=== PATIENT | female | born 1975 | race Two or more races ===

== ENCOUNTER 2020-07-27 06:06 | Outpatient (REF) | payer OTHER, SELFPAY ==
[2020-07-27 06:54] LABS: Basophils Percent Auto 0.3 % (0-2); Eosinophils Absolute Auto 0.2 X10*3/uL (0.0-0.4); Eosinophils Percent Auto 3.2 % (0-4); Hematocrit 39.2 % (37-47); Hemoglobin 12.9 g/dl (12.0-16.0); Imm Gran Abs Auto 0.02 X10*3/uL (0.00-0.03); Imm Gran Pct Auto 0.3 % (0.0-0.4); Lymphocytes Absolute Auto 2.1 X10*3/uL (1.2-4.9); Lymphocytes Percent Auto 32.6 % (20-40); Mean Corpuscular HGB Conc 32.9 g/dl (31.0-35.0); Mean Corpuscular Hemoglobin 26.9 pg (27.0-33.0); Mean Corpuscular Volume 81.7 fL (80-98); Mean Platelet Volume 10.7 fL (9.4-12.3); Monocytes Absolute Auto 0.5 X10*3/uL (0.1-1.2); Monocytes Percent Auto 7.3 % (2-11); Neutrophils Absolute Auto 3.6 X10*3/uL (2.0-8.3); Neutrophils Percent Auto 56.3 % (45-73); Platelet Count 272 X10*3/uL (160-400); Red Cell Distribution Width 13.5 % (11.0-16.0); White Blood Count 6.3 X10*3/uL (4.8-10.8)
[2020-07-27 06:55] LABS: MANUAL DIFF FLAG NO
[2020-07-27 07:27] LABS: Alanine Aminotransferase 18 U/L (0-31); Albumin Level 4.2 g/dL (3.5-5.0); Alkaline Phosphatase 61 U/L (39-117); Anion Gap 11 (12-20); Aspartate Amino Transferase 15 U/L (5-31); Bilirubin Total 0.3 mg/dL (0.0-1.0); Blood Urea Nitrogen 17 mg/dL (9-16); Calcium 8.7 mg/dL (8.4-10.2); Carbon Dioxide 27 mmol/L (22-29); Chloride 103 mmol/L (96-108); Cholesterol 194 mg/dL; Estimated Glomerular Filt Rate > 60; Glucose Fasting 136 mg/dL (60-99); HDL Cholesterol 98 mg/dL; LDL Cholesterol Calculated 89 mg/dl; Potassium 3.9 mmol/l (3.3-5.1); Sodium 137 mmol/L (135-145); Total Protein 6.8 g/dL (6.5-8.0); Triglycerides 37 mg/dL
[2020-07-27 07:47] LABS: TSH reflex Free T4 3.11 mIU/mL (0.32-4.0)
[2020-07-27 08:00] LABS: Estimated Average Glucose 143 mg/dL; Hemoglobin A1c % 6.6 %
[2020-07-27 10:03] LABS: Microalbum/Creatinine Ratio Ur 9.4 ug/mg cr
== END 2020-07-27 06:07 | disposition home or self-care (01) ==
LOC: HO.LAB 06:06
PROVIDERS: Absent Provider Internal Medicine Hypertension Specialist; PCP Physician Assistant; Visit Provider Physician Assistant
DX: E11.21 Type 2 diabetes mellitus with diabetic nephropathy (principal); R80.9 Proteinuria, unspecified
CPT/HCPCS: 36415; 80053; 80061; 82043; 83036; 84443; 85025

== ENCOUNTER 2020-08-13 09:30 | Outpatient (REF) | payer OTHER, SELFPAY ==
[2020-08-13 10:09] LABS: COVID-19 Test Negative (Negative)
== END 2020-08-13 09:31 | disposition home or self-care (01) ==
LOC: HO.EMPCOV 09:30
PROVIDERS: Visit Provider Internal Medicine
DX: Z20.828 Contact with and (suspected) exposure to other viral communicable diseases (principal)
CPT/HCPCS: 87635; C9803

== ENCOUNTER 2020-12-12 14:39 | Outpatient (REF) | payer OTHER, SELFPAY | END 2020-12-12 14:40 | disposition home or self-care (01) | LOC: HO.LNP 14:39 | PROVIDERS: Visit Provider Nurse Practitioner Family | DX: Z20.822 Contact with and (suspected) exposure to COVID-19 (principal); J01.90 Acute sinusitis, unspecified | CPT/HCPCS: U0003; U0005 ==

== ENCOUNTER 2022-01-09 09:10 | Outpatient (REF) | payer OTHER, SELFPAY ==
[2022-01-09 09:38] LABS: MANUAL DIFF FLAG NO
[2022-01-09 10:17] LABS: Basophils Percent Auto 0.6 % (0-2); Eosinophils Absolute Auto 0.2 X10*3/uL (0.0-0.4); Eosinophils Percent Auto 4.1 % (0-4); Hematocrit 40.2 % (37.0-47.0); Hemoglobin 12.7 g/dl (12.0-16.0); Imm Gran Abs Auto 0.04 X10*3/uL (0.00-0.03); Imm Gran Pct Auto 0.8 % (0.0-0.4); Lymphocytes Absolute Auto 1.8 X10*3/uL (1.2-4.9); Lymphocytes Percent Auto 36.2 % (20-40); Mean Corpuscular HGB Conc 31.6 g/dl (31.0-35.0); Mean Corpuscular Hemoglobin 25.7 pg (27.0-33.0); Mean Corpuscular Volume 81.2 fL (80.0-98.0); Mean Platelet Volume 10.7 fL (9.4-12.3); Monocytes Absolute Auto 0.5 X10*3/uL (0.1-1.2); Monocytes Percent Auto 9.4 % (2-11); Neutrophils Absolute Auto 2.5 x10*3/uL (2.0-8.3); Neutrophils Percent Auto 48.9 % (45-73); Platelet Count 249 X10*3/uL (160-400); Red Blood Count 4.95 X10*6/uL (4.20-5.50); Red Cell Distribution Width 14.5 % (11.0-16.0); White Blood Count 5.1 X10*3/uL (4.8-10.8)
[2022-01-09 10:54] LABS: Alanine Aminotransferase 22 U/L (0-31); Albumin Level 4.3 g/dL (3.5-5.0); Alkaline Phosphatase 62 U/L (39-117); Anion Gap 11 (12-20); Aspartate Amino Transferase 14 U/L (5-31); Bilirubin Total 0.4 mg/dL (0.0-1.0); Blood Urea Nitrogen 15 mg/dL (9-16); Calcium 9.6 mg/dL (8.4-10.2); Carbon Dioxide 28 mmol/L (22-29); Chloride 104 mmol/L (96-108); Cholesterol 192 mg/dL; Estimated Glomerular Filt Rate > 60; Glucose Fasting 177 mg/dL (60-99); HDL Cholesterol 97 mg/dL; LDL Cholesterol Calculated 89 mg/dl; Potassium 4.1 mmol/L (3.3-5.1); Sodium 139 mmol/L (135-145); Triglycerides 34 mg/dL
[2022-01-09 11:12] LABS: TSH reflex Free T4 2.78 uIU/mL (0.32-4.0)
[2022-01-09 11:16] LABS: Creatinine Urine 123.28 mg/dL; Microalbum/Creatinine Ratio Ur 10.5 ug/mg cr
[2022-01-12 15:42] LABS: Aspergillus Antigen Not Detected (Not Detected); Index Value 0.08 (<0.50)
== END 2022-01-09 09:11 | disposition home or self-care (01) ==
LOC: HO.LAB 09:10
PROVIDERS: PCP Physician Assistant; Visit Provider Physician Assistant
DX: E11.9 Type 2 diabetes mellitus without complications (principal); Z77.120 Contact with and (suspected) exposure to mold (toxic)
CPT/HCPCS: 36415; 80053; 80061; 82043; 84443; 85025; 87103; 87305

== ENCOUNTER 2022-11-19 12:59 | Outpatient (REF) | payer OTHER, SELFPAY ==
[2022-11-19 14:02] LABS: Alanine Aminotransferase 21 U/L (0-31); Albumin Level 4.1 g/dL (3.5-5.0); Alkaline Phosphatase 59 U/L (39-117); Anion Gap 13 (12-20); Aspartate Amino Transferase 18 U/L (5-31); Bilirubin Total 0.4 mg/dL (0.0-1.0); Blood Urea Nitrogen 9 mg/dL (9-16); Carbon Dioxide 29 mmol/L (22-29); Chloride 104 mmol/L (96-108); Cholesterol 157 mg/dL; Estimated Glomerular Filt Rate > 60; Glucose Random 125 mg/dL (60-115); HDL Cholesterol 64 mg/dL; LDL Cholesterol Calculated 84 mg/dl; Potassium 3.7 mmol/L (3.3-5.1); Sodium 142 mmol/L (135-145); Total Protein 6.4 g/dL (6.5-8.0); Triglycerides 49 mg/dL
[2022-11-19 14:19] LABS: TSH reflex Free T4 1.57 uIU/mL (0.32-4.0); Vitamin D 25-OH Total 11.2 ng/mL (>30)
[2022-11-19 14:33] LABS: Estimated Average Glucose 240 mg/dL
[2022-11-19 16:31] LABS: Creatinine Urine 318.54 mg/dL; Microalbum/Creatinine Ratio Ur 24.4 ug/mg cr
== END 2022-11-19 13:00 | disposition home or self-care (01) ==
LOC: HO.LAB 12:59
PROVIDERS: PCP Physician Assistant; Visit Provider Nurse Practitioner Family
DX: Z01.84 Encounter for antibody response examination (principal); Z13.21 Encounter for screening for nutritional disorder; Z13.220 Encounter for screening for lipoid disorders; Z13.29 Encounter for screening for other suspected endocrine disorder; E11.9 Type 2 diabetes mellitus without complications
CPT/HCPCS: 36415; 80053; 80061; 82043; 82306; 83036; 84443; 86787

== ENCOUNTER 2022-12-17 16:36 | Outpatient (REF) | payer OTHER, SELFPAY ==
--- NOTE | ~2022-12-17 | XR_ITS ---
EXAMINATION: XR HAND, BILATERAL CLINICAL INFORMATION: Other specified soft tissue disorders. COMPARISON: X-ray of the right hand June 2010. TECHNIQUE: 3 views of each hand. FINDINGS: Right Hand: The bones and joints are normally aligned. No joint space narrowing. No marginal erosions or soft tissue calcifications. No definite osteopenia. Left Hand: Exam slightly limited by obscuration of the proximal phalanx of the ring finger by a metallic ring still in place. Remaining bones joints soft tissues unremarkable. No marginal erosions normal alignment. XR/XR hand LT 2V IMPRESSION: Normal x-ray series of both hands.
--- NOTE | ~2022-12-17 | XR_ITS ---
EXAMINATION: XR HAND, BILATERAL CLINICAL INFORMATION: Other specified soft tissue disorders. COMPARISON: X-ray of the right hand June 2010. TECHNIQUE: 3 views of each hand. FINDINGS: Right Hand: The bones and joints are normally aligned. No joint space narrowing. No marginal erosions or soft tissue calcifications. No definite osteopenia. Left Hand: Exam slightly limited by obscuration of the proximal phalanx of the ring finger by a metallic ring still in place. Remaining bones joints soft tissues unremarkable. No marginal erosions normal alignment. XR/XR hand RT 2V IMPRESSION: Normal x-ray series of both hands.
[2022-12-17 18:06] LABS: Rheumatoid Factor < 13.0 IU/mL (<15.0)
[2022-12-18 08:29] LABS: Lyme Abs Screen <0.90 index
[2022-12-18 11:44] LABS: Cyclic Citrullinated Peptide <16 UNITS
[2022-12-19 13:28] LABS: Anti Nuclear Antibody Screen NEGATIVE (NEGATIVE)
== END 2022-12-17 16:37 | disposition home or self-care (01) ==
LOC: HO.LAB 16:36
PROVIDERS: PCP Physician Assistant; Visit Provider Physician Assistant
DX: M79.89 Other specified soft tissue disorders (principal)
CPT/HCPCS: 36415; 73120; 86038; 86039; 86200; 86431; 86617; 86618

== ENCOUNTER 2023-03-19 14:56 | Outpatient (AMB) | payer OTHER, SELFPAY ==
--- NOTE | 2023-03-19 15:07 | MHC.OFFWIV ---
Intake Vital Signs 03/19/23 15:08 Height 5 ft 2 in BP 126/72 Blood Pressure Location Rt brachial Position Sitting Pulse 89 Pulse Source Pulse Oximeter Temp 96.1 F L Temp Source Temporal Artery Scan Pulse Oximetry (%) 98 Oxygen Delivery Method Room Air Intake Visit Reasons: EP Feet/hands swelling/rash (lobby) Intake Note: Pt is here c/o bilateral swollen feet and hands. Pt also states she has a rash all over. Patient Tobacco Use Status: Never used Tobacco Allergies grape [GRAPE] Allergy (Unknown, Verified 03/19/23 15:45) SWELLING paroxetine [Paxil] Allergy (Unknown, Verified 03/19/23 15:45) unknown shrimp Allergy (Unknown, Verified 03/19/23 15:45) throat itches sumatriptan Allergy (Unknown, Verified 03/19/23 15:45) Unknown fresh fruit grapes Allergy (Unknown, Uncoded 03/19/23 15:45) neck swelling , sob , neck swelling fresh fruit pears Allergy (Unknown, Uncoded 03/19/23 15:45) neck swelling , sob , Medication List - Last Reconciled 03/19/23 by Reji Sagastume MD albuterol sulfate 90 mcg/actuation 1 inh inhalation QID PRN 30 days cetirizine (Zyrtec) 10 mg PO DAILY PRN cholecalciferol (vitamin D3) 50 mcg PO DAILY clotrimazole 1% 1 appl topical BID 30 days dulaglutide (Trulicity) 0.75 mg (0.5 mL) subcut QWEEK 4 weeks fluconazole (Diflucan) 150 mg PO Q3D 2 doses fluoxetine 10 mg PO DAILY 90 days levothyroxine 50 mcg PO QAM lisinopril 2.5 mg PO DAILY metformin 1,000 mg PO BID prednisone 20 mg PO DAILY 8 days valacyclovir 2,000 mg (2 x 1 gram) PO Q12H Do you need a note to return to daycare/school/sports/work: No HPI EP Feet/hands swelling/rash (lobby) HPI Details 48-year-old female presents to the office for a sick visit. She has been diagnosed with acute myeloid leukemia and just completed chemotherapy. She received her last chemotherapy a few weeks ago. All her care is at [facility]. In the last week patient has developed a rash on both her hands. Not much relief with Benadryl or Atarax. [facility] Medical History Intermittent chest pain Vitamin D deficiency Surgical History History of in vitro fertilization History of tubal ligation Family History Father No problems noted. 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 Minimal induration. Assessment & Plan Assessment & Plan (1) Rash: Code(s): R21 - Rash and other nonspecific skin eruption Plan: Prednisone and hydrocortisone cream called in. Patient was advised to inform her oncologist about the current treatment. Coding Level of Care Code Est Pt Level 3 (67450) Diagnoses Rash R21
[2023-03-19 15:08] VITALS: BP 126/72; PULSE 89; TEMP 35.6; O2SAT 98
== END 2023-03-19 16:15 | disposition home or self-care (01) ==
PROVIDERS: PCP Physician Assistant; Visit Provider Internal Medicine
DX: R21 Rash and other nonspecific skin eruption (principal)
CPT/HCPCS: 99213

== ENCOUNTER 2023-03-27 10:39 | Outpatient (AMB) | payer OTHER, SELFPAY ==
[2023-03-27 10:47] VITALS: BP 146/70; PULSE 86; O2SAT 98
--- NOTE | 2023-03-27 10:47 | MHC.PC.OV ---
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 Printing Paper Required: No Allergies grape [GRAPE] Allergy (Unknown, Verified 03/27/23 11:09) SWELLING paroxetine [Paxil] Allergy (Unknown, Verified 03/27/23 11:09) unknown shrimp Allergy (Unknown, Verified 03/27/23 11:09) throat itches sumatriptan Allergy (Unknown, Verified 03/27/23 11:09) Unknown fresh fruit grapes Allergy (Unknown, Uncoded 03/27/23 10:55) neck swelling , sob , neck swelling fresh fruit pears Allergy (Unknown, Uncoded 03/27/23 10:55) neck swelling , sob , Medication List - Last Reconciled 03/27/23 by Erik Frank PA-C acyclovir 400 mg PO TID albuterol sulfate 90 mcg/actuation 1 inh inhalation QID PRN 30 days cetirizine (Zyrtec) 10 mg PO DAILY 90 days cholecalciferol (vitamin D3) 50 mcg PO DAILY 90 days clotrimazole 1% 1 appl topical BID 30 days fluoxetine 10 mg PO DAILY 90 days hydrocortisone 2.5% 1 appl topical BID PRN insulin glargine (Lantus Solostar U-100 Insulin) 20 units (0.2 mL) subcut DAILY 30 days insulin lispro 6 units (0.06 mL) subcut TID 30 days levothyroxine 50 mcg PO QAM lisinopril 2.5 mg PO DAILY lorazepam 0.5 mg PO BEDTIME 7 days melatonin 9 mg (3 x 3 mg) PO BEDTIME 90 days pen needle, diabetic (BD Ultra-Fine Ana Pen Needle) As directed prednisone 60 mg (3 x 20 mg) PO DAILY 2 days Tobacco use date assessed: 03/27/23 Dental Screening Dental Screen Date: 03/27/23 HPI DM HPI Details Patient is a 48-year-old female here today for follow-up visit. Patient has past medical history significant for type 2 diabetes, hypertension, hypothyroidism, obesity and generalized anxiety disorder Recently diagnosed with acute leukemia and was been treated at [place] ( Dr. Wadleigh) has gotten Chemo. Has gotten a bone marrow biopsy and is awaiting results. She will be following up with [facility] and will be starting a new chemotherapy in near future. Type 2 diabetes: Ottoniel has been discontinued now on Lantus and lispro which has been affective on reducing her blood sugars. Most recent A1c now at 5.6. .. Hypertension: Blood pressure slightly elevated today in office, advised to monitor blood pressure at home. Continue current dose of lisinopril .. Anxiety: Continues on SSRI therapy. Will start her on lorazepam to take on a p.r.n. basis for high points of anxiety which has been effective. Also started on 9 mg of melatonin at night to help her sleep which has been effective her. .. PFSH Medical History Intermittent chest pain Vitamin D deficiency Surgical History History of in vitro fertilization History of tubal ligation Family History Father No problems noted. 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 How often do you have a drink containing alcohol?: Monthly or less 2. How many drinks containing alcohol do you have on a typical day when you are drinking?: 1 or 2 3. How often do you have six or more drinks on one occasion?: Never Total Score: 1 DRAKE-7 AMB Questionnaire DRAKE-7 Date DRAKE - 7 assessed: 12/17/22 Source: Developed by Drs. Andres Ram, Amber Charles, Jose Juan Mock and colleagues, with an educational alba from [employer]. Review of Systems Const Denies headache(s) Eyes Denies loss of vision ENT Denies vertigo, Denies dizziness, Denies headache(s) and Denies sore throat Card Denies chest pain, Denies leg edema and Denies lightheadedness Resp Denies cough, Denies hemoptysis and Denies wheezing GI Denies abdominal pain, Denies melena, Denies constipation, Denies diarrhea and Denies vomiting Denies urinary frequency, Denies dysuria and Denies urinary urgency Musc Denies arthralgias, Denies joint swelling, Denies numbness and Denies tingling Neuro Denies Abnormal speech present, Denies behavioral changes, Denies vertigo, Denies dizziness, Denies headache(s), Denies loss of vision, Denies memory loss, Denies numbness and Denies tingling Psych Denies anxiety, Denies behavioral changes, Denies depression, Denies memory loss and Denies panic attacks Imer/Lymph Denies easy bleeding and Denies easy bruising Aller/Immun Denies wheezing Physical exam (Primary Care) Vital Signs: Last Vital Signs Pulse 86 03/27/23 10:47 BP 146/70 H 03/27/23 10:47 Pulse Ox 98 03/27/23 10:47 Oxygen Delivery Method Room Air 03/27/23 10:47 BMI result Body Mass Index 30.0 Tobacco/Smoking Status: Tobacco use Status Tobacco use date assessed 03/27/23 03/27/23 10:48 Patient Tobacco Use Status Never used Tobacco 03/27/23 10:48 Thrive Assessment: Date of Thrive Assessment Date Thrive assessed 12/17/22 03/27/23 10:48 Const Other: HAIR AND WEIGHT LOSS NOTED General: healthy appearing, no acute distress, alert and awake Nutritional Appearance: well nourished Orientation/consciousness: oriented to person, oriented to place and oriented to time HENMT Ears: TM's normal bilaterally General nose exam: Normal nasal mucous membranes and turbinates present Eyes Conjunctivae: conjunctivae normal Sclerae: sclerae normal Pupils: Equal, round and reactive pupils present Neck Neck: Yes no lymphadenopathy and Yes no JVD Thyroid: Thyroid normal Carotids: no bruits Resp Effort & Inspection: normal respiratory effort and not tachypneic Auscultation: no crackles, no rales, no rhonchi and no wheezes Cardio Rate: regular rate Rhythm: regular rhythm Heart sounds: no murmurs and normal S1 and S2 GI Palpation (GI): Soft to palpation, nontender, no hepatomegaly and no splenomegaly Auscultation: normal bowel sounds Skin General skin exam: no rashes or lesions noted and dry skin Neuro General: oriented to person, oriented to place and oriented to time Cranial nerves: Yes Equal, round and reactive pupils present Speech: No Abnormal speech present Gait exam (Neuro): Normal gait present Motor exam (neuro): no tremor noted Extrem Right upper extremity: full ROM Left upper extremity: full ROM Right lower extremity: full ROM; no edema Left lower extremity: full ROM; no edema Psych Mental Status: mental status grossly normal Speech and movement: Normal speech and movement present Affect: normal affect Attitude: cooperative Thought process: Normal thought process present Results AMB Hemoglobin A1c AMB Hemoglobin A1c 5.6 % Last Edit by KRISSY Garcia on 03/27/23 11:05 Results Reviewed Results Reviewed: Laboratory Last Values Hgb A1c (Clinic) 5.6 % (4.0-6.0) 03/27/23 10:49 Assessment and Plan Assessment & Plan (1) DMII (diabetes mellitus, type 2): Code(s): E11.9 - Type 2 diabetes mellitus without complications Qualifiers: Diabetes mellitus complication status: without complication Diabetes mellitus correction insulin use: without correction use Qualified Code(s): E11.9 - Type 2 diabetes mellitus without complications Plan: Patient's type 2 diabetes well controlled on current Lantus 20 units and lispro 6 units t.i.d.. Will try to transition her to using continues glucose monitoring if at all possible. Goal A1c is to remain below 7.0 (2) HTN (hypertension): Code(s): I10 - Essential (primary) hypertension Qualifiers: Hypertension type: primary hypertension Qualified Code(s): I10 - Essential (primary) hypertension Plan: Patient's blood pressure slightly elevated today in office. Advised to monitor blood pressure at home to ensure normal. Will continue her current dose of lisinopril and consider increasing dose as per blood pressure readings. Goal blood pressure be below 140/90 (3) AML (acute myeloblastic leukemia): Code(s): C92.00 - Acute myeloblastic leukemia, not having achieved remission Qualifiers: Leukemia Active/Remission status: without remission Qualified Code(s): C92.00 - Acute myeloblastic leukemia, not having achieved remission Plan: Recently diagnosed with acute myeloblastic leukemia. Now followed by director of group counseling program at [facility] in [place]. . Also has gotten a bone marrow biopsy and is awaiting a bone marrow transplant. Is due for more chemotherapy in near future. (4) Hypothyroidism: Code(s): E03.9 - Hypothyroidism, unspecified Qualifiers: Hypothyroidism type: unspecified Qualified Code(s): E03.9 - Hypothyroidism, unspecified Plan: Patient continues on levothyroxine 50 mcg. Most recent TSH has been stable. Will continue to follow TSH to assure normal (5) DRAKE (generalized anxiety disorder): Code(s): F41.1 - Generalized anxiety disorder Plan: Patient continues on SSRI therapy with good effect on controlling her anxiety. Does use lorazepam on a very limited p.r.n. basis. Has been started on melatonin as well as for sleep which has been effective Orders: Orders AMB Hemoglobin A1c Today E11.9 - Type 2 diabetes mellitus without complications Medications: New insulin glargine (Lantus Solostar U-100 Insulin) 20 units (0.2 mL) subcut DAILY 30 days 15 mL 1RF E11.9 - Type 2 diabetes mellitus without complications insulin lispro 6 units (0.06 mL) subcut TID 30 days 15 mL 3RF E11.9 - Type 2 diabetes mellitus without complications lorazepam 0.5 mg PO BEDTIME 7 days 7 tabs 0RF anxiety F41.1 - Generalized anxiety disorder melatonin 9 mg (3 x 3 mg) PO BEDTIME 90 days 270 tabs 1RF sleep F41.1 - Generalized anxiety disorder cholecalciferol (vitamin D3) 50 mcg PO DAILY 90 days 90 tabs 1RF pen needle, diabetic (BD Ultra-Fine Ana Pen Needle) As directed 1,200 ea 1RF E11.9 - Type 2 diabetes mellitus without complications blood-glucose sensor (FreeStyle Estephanie 3 Sensor device) As directed 1 ea 1RF E11.9 - Type 2 diabetes mellitus without complications flash glucose scanning reader (FreeStyle Estephanie 14 Day [place]) As directed 1 ea 3RF E11.9 - Type 2 diabetes mellitus without complications Changed From cetirizine (Zyrtec) 10 mg PO DAILY PRN 60 tabs 0RF allergy symptoms J01.90 - Acute sinusitis, unspecified To cetirizine (Zyrtec) 10 mg PO DAILY 90 days 90 tabs 1RF allergy symptoms J01.90 - Acute sinusitis, unspecified Refilled levothyroxine 50 mcg PO QAM 30 tabs 3RF E03.9 - Hypothyroidism, unspecified lisinopril 2.5 mg PO DAILY 90 tabs 1RF I10 - Essential (primary) hypertension fluoxetine 10 mg PO DAILY 90 days 90 caps 1RF F41.1 - Generalized anxiety disorder albuterol sulfate 90 mcg/actuation 1 inh inhalation QID 30 days PRN 8.5 grams 2RF shortness of breath or wheezing J45.909 - Unspecified asthma, uncomplicated clotrimazole 1% 1 appl topical BID 30 days 45 grams 1RF B35.9 - Dermatophytosis, unspecified Discontinued cholecalciferol (vitamin D3) Discontinued Reason: Doctor's Order 50 mcg PO DAILY 30 caps 3RF fluconazole (Diflucan) Discontinued Reason: Doctor's Order 150 mg PO Q3D 2 tabs 0RF N76.0 - Acute vaginitis Coding Level of Care Code Est Pt Level 4 (90057) Diagnoses DMII (diabetes mellitus, type 2) E11.9 Diabetes mellitus complication status: without complication 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
== END 2023-03-27 11:32 | disposition home or self-care (01) ==
PROVIDERS: PCP Physician Assistant; Visit Provider Physician Assistant
DX: E11.9 Type 2 diabetes mellitus without complications (principal); I10 Essential (primary) hypertension; C92.00 Acute myeloblastic leukemia, not having achieved remission; E03.9 Hypothyroidism, unspecified; F41.1 Generalized anxiety disorder
CPT/HCPCS: 83036; 99214

== ENCOUNTER → 2023-05-09 16:30 | Outpatient (BNV) | payer OTHER, SELFPAY | PROVIDERS: PCP Physician Assistant; Visit Provider Radiology Diagnostic Radiology | DX: Z12.31 Encounter for screening mammogram for malignant neoplasm of breast (principal) | CPT/HCPCS: 77063; 77067 ==

== ENCOUNTER 2023-05-09 16:38 | Outpatient (REF) | payer OTHER, SELFPAY ==
--- NOTE | ~2023-05-09 | MM_ITS ---
EXAMINATION: MM SCREENING DIGITAL BREAST TOMOSYNTHESIS, BILATERAL CLINICAL INFORMATION: Screening. Asymptomatic. COMPARISON: Mammography: This study is compared with prior exams dating back to 2016. TECHNIQUE: Digital breast tomosynthesis is performed in both the craniocaudal and mediolateral oblique views along with computer-aided detection (CAD). Synthesized 2D images are generated from the tomosynthesis. FINDINGS: There are scattered areas of fibroglandular density (ACR BI-RADS breast composition Category b). There are no significant masses, abnormal calcifications, or other abnormalities. MM/MM tomosynthesis screening BI IMPRESSION: No mammographic evidence of malignancy. ASSESSMENT: BI-RADS BI-RADS 1 - Negative RECOMMENDATION: Routine annual mammography screening. 1 year F/U This examination should not preclude the clinical evaluation of a suspicious palpable abnormality. This patient's information was entered into a reminder system with a target due date for their next mammogram.
== END 2023-05-09 16:39 | disposition home or self-care (01) ==
LOC: HO.MAMMO 16:38
PROVIDERS: PCP Physician Assistant; Visit Provider Physician Assistant
DX: Z12.31 Encounter for screening mammogram for malignant neoplasm of breast (principal)
CPT/HCPCS: 77063; 77067